=== PATIENT | female | born 1990 | race Caucasian/White ===

== ENCOUNTER 2018-12-27 10:19 | Inpatient (IN) | payer MEDICAID ==
[~2018-12-27] VITALS: Ht 167.6 cm; Wt 80.5 kg
[2019-01-31] VITALS (22 sets, daily range): BP systolic 105–1221; BP diastolic 56–95; PULSE 66–129; TEMP 97.6–98.2
--- NOTE | 2019-01-31 07:45 | NUR ---
Patient ambulatory to LR2 with spouse, changed into clean gown, FHR/TOCO monitors placed and explained. Patient denies any complications, leaking of fluid/vaginal bleeding, regular contractions. Plan of care discussed. Patient is aware that Dr. Gonsalves will be coming to assess and do sono to check baby B position, plan is to have vaginal delivery if in vertex position. Patient agrees with plan. 0800: IV started in left hand and blood obtained and to lab, LR infusing. Assessment completed and consents/ pack gone over and signed. Oriented to room and meal menu. 0830: Dr. Gonsalves called and Yady talked to while assists with surgery, Dr. Gonsalves orders to start pitocin and he would be over after surgery to assess patient. Patient updated and educated on pitocin induction. Patient agrees with plan. 0839: Pitocin started at 2mU at this time.
[2019-01-31] MEDS ORDERED: PRENATAL TABLET PO (08:16)
[2019-01-31 08:50] LABS: BASO % 0.2 % (0.0-2.0); EOS # 0.1 (0.0-0.7); EOS % 1.3 % (0-4.0); GRAN # 6.3 (1.4-6.5); GRAN % 69.8 % (42.2-75.2); HEMATOCRIT 37.5 % (37.0-47.0); HEMOGLOBIN 12.6 g/dl (12.5-16.0); LYMPH # 1.9 (1.2-3.4); LYMPH % 20.9 % (20.0-51.0); MEAN CELL VOLUME 95 fl (80.0-100.0); MEAN CORPUSCULAR HEMOGLOBIN 32 pg (27.0-31.0); MEAN CORPUSCULAR HGB CONC 34 g/dl (33.0-37.0); MEAN PLATELET VOLUME 11.2 fl (7.4-10.4); MONO # 0.6 (0.1-0.6); MONO % 6.8 % (1.7-9.3); PLATELET COUNT 147 K/mm3 (130-400); RED BLOOD COUNT 3.93 M/mm3 (4.10-5.30); REDCELL DISTRIBUTION WIDTH-CV 13.1 % (11.5-14.5)
--- NOTE | 2019-01-31 10:05 | NUR ---
Dr. Gonsalves at bedside and assessing patient and FHR strip. 1007: Sono done at this time and both vertex confirmed. SVE-4/100/-2 and AROM of Baby A at this time with clear fluid noted. Plan of care discussed.
--- NOTE | 2019-01-31 10:10 | NUR ---
1010: Patient off monitor to void. 1040: Patient feeling some pressure and requests epidural 1042: Kenny ROME called and notified. 1110: Patient feeling alot of pressure and requests cervical check. Mariza Esqueda CRNA at bedside. SVE-8/+1. 1111: Dr. Gonsalves called and notified and states to take patient back to OR and on his way. Patient agrees with no epidural at this time. 1118: Patient off monitors and to OR.
--- NOTE | 2019-01-31 11:19 | NUR ---
Patient from labor room to OR via bed. Patient transfers self onto OR table and patient prepped for vaginal delivery. Legs resting in stirrups and plan being discussed with patient/spouse. 1120: Difficulty tracing baby A at this time and this RN adjusting FHR monitor. 1125: Dr. Gonsalves at in OR and at bedside. SVE-9-10/100/+2 Orders to increase pitocin to 10 mU and done at this time. Dr. Sy at bedside and sono done and both babies in vertex position. 1244: Patient begins to push with each contraction per Dr. Gonsalves orders. 1150: Spontaneous vaginal delivery of viable Baby A, bulb syringed and cord clamped by physician and cut by FOB, Infant to warmer and Sharon RN assumes care of . Patient continues to push with each contraction. 1156: Spontaneous vaginal delivery of viable Baby B, bulbed syringed and cord clamped by physician and cut by FOB. Infant to warmer and Hardik RN assumes care of . Perineum intact and patient resting. 1202: Spontaneous delivery of placenta and pitocin bolus of 333mU started at this time. Fundal massage done/bleeding moderate per Dr. Gonsalves Order to give methergine. Kenny ROME gives methergine shot in left leg. Fundal massage done/bleeding WNL/fundus firm. 1218: Patient onto labor bed and back to labor room for recovery via bed. Plan of care discussed and questions answered.
--- NOTE | 2019-01-31 14:15 | NUR ---
Patient dangles feet on edge of bed, ambulates to bathroom with standby assist, voids, pericare done, new gown/underwear/pad on. Patient ambulates to wheelchair. To new room via wheelchair, oriented to . Plan of care discussed. Whiteboard gone over.
[2019-02-01 05:00] VITALS: BP 112/58; PULSE 71; TEMP 97.9
[2019-02-01 08:15] VITALS: BP 119/70; PULSE 86; TEMP 98.5
[2019-02-01] MEDS ORDERED: IBU600 MG PO (11:08)
== END 2019-02-01 15:13 | disposition home or self-care (01) | DRG 807 ==
LOC: OB 10:19 → LDR 01-31 07:35 → OB 01-31 08:18
PROVIDERS: ADMIT Obstetrics & Gynecology
PROC: 10E0XZZ Delivery of Products of Conception, External Approach (ICD-10-PCS; principal; 2019-01-31)
PROC: 10E0XZZ Delivery of Products of Conception, External Approach (ICD-10-PCS; 2019-01-31)
PROC: 10907ZC Drainage of Amniotic Fluid, Therapeutic from Products of Conception, Via Natural or Artificial Opening (ICD-10-PCS; 2019-01-31)
PROC: 3E033VJ Introduction of Other Hormone into Peripheral Vein, Percutaneous Approach (ICD-10-PCS; 2019-01-31)
DX: O30.033 Twin pregnancy, monochorionic/diamniotic, third trimester (principal); Z37.2 Twins, both liveborn; O69.1XX1 Labor and delivery complicated by cord around neck, with compression, fetus 1; O99.62 Diseases of the digestive system complicating childbirth; K21.9 Gastro-esophageal reflux disease without esophagitis; Z3A.36 36 weeks gestation of pregnancy
CPT/HCPCS: J0330; J0690; J1885; J2210; J2270; J2370; J2590; J2704; J2795; J7120